=== PATIENT | female | born 1960 | race Caucasian/White ===

== ENCOUNTER 2020-06-24 13:37 | Emergency (ER) | payer SELFPAY ==
[2020-06-24 14:54] LABS: #Basophils 0.1 thou/uL (0.0-0.2); #Eosinphils 0.1 thou/uL (0.0-0.7); #Lymphocytes 2.7 thou/uL (1.20-3.40); #Monocytes 0.4 thou/uL (0.11-0.59); %Basophils 1.2 % (0.0-1.0); %Eosinophils 1.2 % (0.0-10.0); %Lymphocytes 29.1 % (21.0-51.0); %Monocytes 4.2 % (0.0-10.0); %Neutrophils 64.3 % (42.0-75.0); Hemoglobin 13.1 g/dL (12.0-16.0); Mean Corpuscular HGB CONC 33.5 g/dL (32.0-36.0); Mean Corpuscular Hemoglobin 32.9 pg (27.0-31.0); Mean Corpuscular Volume 98.2 fL (78.0-98.0); Platelet Count 337 thou/uL (130-400); RBC Distribution Width 12.2 % (11.5-14.5); Red Blood Cell (RBC) Count 3.97 mill/uL (4.20-5.40); White Blood Cell (WBC) Count 9.4 thou/uL (4.8-10.8)
[2020-06-24 14:56] LABS: Bilirubin Negative (Negative); Blood, Urine Trace (Negative); Clarity Clear (Clear); Glucose, Urine (Dipstick) Normal (Negative); Ketone, Urine Negative (Negative); Leukocyte 75 Leu/uL (Negative); Nitrite Negative (Negative); Protein, Urine (Dipstick) Negative (Neg-Trace); RBC/HPF 0-3 HPF (0-3); Specific Gravity, Urine 1.009 (1.002-1.036); Squamous Epithelial 0-3 HPF (0-3); Urobilinogen Normal mg/dL (Less than 2); WBC/HPF 0-3 HPF (0-3)
[2020-06-24 14:58] LABS: Bacteria/HPF 1+ HPF (None Seen)
[2020-06-24 15:09] LABS: ALT (SGPT) 12 U/L (8-55); AST (SGOT) 17 U/L (5-34); Albumin 4.6 g/dL (3.5-5.0); Alkaline Phosphatase 77 U/L (40-110); Anion Gap 14 mmol/L (10-20); BUN (Urea Nitrogen) 13 mg/dL (9.8-20.1); Bilirubin, Total 0.3 mg/dL (0.2-1.2); Calc. Creatinine Clearance 0 mL/min (70-130); Calcium 9.2 mg/dL (7.8-10.44); Carbon Dioxide 26 mmol/L (22-29); Chloride 107 mmol/L (98-107); Globulin 2.8 g/dL (2.4-3.5); Glucose 130 mg/dL (70-105); Potassium 3.8 mmol/L (3.5-5.1); Protein, Total 7.4 g/dL (6.0-8.3); Sodium 143 mmol/L (136-145)
== END 2020-06-24 19:05 | disposition home or self-care (01) ==
LOC: ERS 13:37
DX: R06.02 Shortness of breath (principal); R05 Cough; E11.9 Type 2 diabetes mellitus without complications; E03.9 Hypothyroidism, unspecified; E78.5 Hyperlipidemia, unspecified; E78.00 Pure hypercholesterolemia, unspecified; I10 Essential (primary) hypertension; F17.210 Nicotine dependence, cigarettes, uncomplicated; Z79.899 Other long term (current) drug therapy
CPT/HCPCS: 71045; 80053; 81003; 81015; 83880; 84484; 85025; 85379; 93005

== ENCOUNTER 2021-01-04 10:26 | Outpatient (CLI) | payer OTHER ==
[2021-01-04 22:21] LABS: SARS-CoV-2 PCR by NAA Not Detected (NotDetected)
== END 2021-01-04 10:27 | disposition home or self-care (01) ==
LOC: LABBT 10:26
PROVIDERS: ATTEND Surgery
DX: Z01.812 Encounter for preprocedural laboratory examination (principal); K43.2 Incisional hernia without obstruction or gangrene; Z20.822 Contact with and (suspected) exposure to COVID-19
CPT/HCPCS: U0003; U0005

== ENCOUNTER 2021-01-09 08:19 | Day surgery (SDC) | payer OTHER ==
[2021-01-05 15:22] VITALS: BMI 29.9
[2021-01-09] MEDS ORDERED: Bupivacaine 0.25% HCL 30 ML VIAL ONE (12:46)
[2021-01-09] MEDS ORDERED: Lidocaine 1% w/Epinephrine 1:100K 20 ML VIAL ONE (12:46)
[2021-01-09] MEDS ORDERED: Midazolam HCl 2 mg/2 ml Vial ONE (12:54)
[2021-01-09] MEDS ORDERED: Fentanyl 250 MCG/5 ML VIAL ONE (12:54)
[2021-01-09] MEDS ORDERED: PROPOFOL 200 MG/20 ML VIAL ONE (13:05)
[2021-01-09] MEDS ORDERED: Lidocaine 1% PF 5 ML VIAL ONE (13:05)
[2021-01-09] MEDS ORDERED: PHENYLEPHRINE-NS 100 MCG/ML 10 ML SYRINGE ONE (13:05)
[2021-01-09] MEDS ORDERED: ePHEDrine 50 MG/ML VIAL ONE (13:05)
[2021-01-09] MEDS ORDERED: Dexamethasone 20 MG/5 ML VIAL ONE (13:05)
[2021-01-09] MEDS ORDERED: Ondansetron PF 4 MG/2 ML Vial ONE (13:05)
[2021-01-09] MEDS ORDERED: Glycopyrrolate 0.2 MG/ML 5 ML SYRINGE ONE (13:05)
[2021-01-09] MEDS ORDERED: Rocuronium Bromide 10 MG/ML (10ML VIAL) ONE (13:05)
[2021-01-09] MEDS ORDERED: SUGAMMADEX SODIUM 200 MG/2 ML VIAL ONE (14:32)
[2021-01-09] MEDS ORDERED: Morphine 4 MG/ML VIAL ONE ×2 (14:49→15:39)
[2021-01-09] MEDS ORDERED: Ondansetron ODT 4 MG TAB ONE (17:23)
[2021-01-09] MEDS ORDERED: Promethazine HCl 25 MG/ML VIAL ONE (19:14)
== END 2021-01-09 20:15 | disposition home or self-care (01) ==
LOC: SDC 08:19
PROVIDERS: ATTEND Surgery
PROC: 0WUF4JZ Supplement Abdominal Wall with Synthetic Substitute, Percutaneous Endoscopic Approach (ICD-10-PCS; principal; 2021-01-09)
DX: K43.0 Incisional hernia with obstruction, without gangrene (principal); K66.0 Peritoneal adhesions (postprocedural) (postinfection); E78.00 Pure hypercholesterolemia, unspecified; I10 Essential (primary) hypertension; E03.9 Hypothyroidism, unspecified; E11.9 Type 2 diabetes mellitus without complications; F17.210 Nicotine dependence, cigarettes, uncomplicated; Z79.899 Other long term (current) drug therapy; Z88.0 Allergy status to penicillin
CPT/HCPCS: C1781; J1100; J2250; J2270; J2405; J2550; J2704; J3010; J3490; Q0162; S0020

== ENCOUNTER 2021-10-10 12:51 | Outpatient (CLI) | payer OTHER | END 2021-10-10 12:52 | disposition home or self-care (01) | LOC: BICCT 12:51 | PROVIDERS: ATTEND Student in an Organized Health Care Education/Training Program | DX: Z12.2 Encounter for screening for malignant neoplasm of respiratory organs (principal); F17.210 Nicotine dependence, cigarettes, uncomplicated | CPT/HCPCS: 71271 ==

== ENCOUNTER 2023-03-21 13:03 | Outpatient (CLI) | payer OTHER | END 2023-03-21 13:04 | disposition home or self-care (01) | LOC: BICRAD 13:03 | PROVIDERS: ATTEND Student in an Organized Health Care Education/Training Program | DX: M54.50 Low back pain, unspecified (principal); M47.816 Spondylosis without myelopathy or radiculopathy, lumbar region | CPT/HCPCS: 72100 ==